=== PATIENT | female | born 1995 | race Hispanic/Latino ===

== ENCOUNTER 2017-12-09 08:32 | Emergency (ER) | payer SELFPAY ==
[2017-12-09] MEDS ORDERED: ACETAMINOPHEN EXTRA STRENGTH 500 MG TABLET ONE (08:39)
[2017-12-09 09:25] LABS: HCG,QUAL RESULT NEGATIVE (NEGATIVE)
[2017-12-09 09:26] LABS: APPEARANCE,URINE Cloudy (CLEAR); BILIRUBIN,URINE Negative (NEGATIVE); COLOR,URINE Yellow (YELLOW); GLUCOSE, URINE (UA) Negative (NEGATIVE); KETONES,URINE Trace mg/dL (NEGATIVE); LEUKOCYTE ESTERASE ,URINE Small (NEGATIVE); NITRATE,URINE Negative (NEGATIVE); OCCULT BLOOD,URINE Nonhemolyzed Trace (NEGATIVE); PH,URINE 6.5 (5.0-8.0); PROTEIN,URINE Trace (NEGATIVE)
[2017-12-09 09:37] LABS: BACTERIA,URINE Few /HPF (None Seen)
== END 2017-12-09 10:26 | disposition home or self-care (01) ==
LOC: EDH 08:32
DX: R50.9 Fever, unspecified (principal); R05 Cough; M79.1 Myalgia; R11.2 Nausea with vomiting, unspecified
CPT/HCPCS: 81001; 81025; 87804

== ENCOUNTER 2018-02-23 03:32 | Emergency (ER) | payer SELFPAY | END 2018-02-23 04:17 | disposition home or self-care (01) | LOC: EDH 03:32 | DX: R07.89 Other chest pain (principal); F41.1 Generalized anxiety disorder; Z72.0 Tobacco use; Z90.49 Acquired absence of other specified parts of digestive tract | CPT/HCPCS: 93005 ==

== ENCOUNTER 2018-02-24 20:07 | Emergency (ER) | payer SELFPAY | END 2018-02-24 20:47 | disposition home or self-care (01) | LOC: EDH 20:07 | DX: Z02.89 Encounter for other administrative examinations (principal); Z90.49 Acquired absence of other specified parts of digestive tract ==

== ENCOUNTER 2018-04-03 09:18 | Emergency (ER) | payer OTHER | END 2018-04-03 11:13 | disposition home or self-care (01) | LOC: EDH 09:18 | DX: S89.81XA Other specified injuries of right lower leg, initial encounter (principal); W18.39XA Other fall on same level, initial encounter; Y93.89 Activity, other specified; Y92.89 Other specified places as the place of occurrence of the external cause; Y99.8 Other external cause status | CPT/HCPCS: 29505; 73562 ==

== ENCOUNTER 2018-10-21 20:14 | Emergency (ER) | payer OTHER ==
[2018-10-21] MEDS ORDERED: ONDANSETRON ODT 4 MG TAB ONE (20:46)
[2018-10-21 21:53] LABS: APPEARANCE,URINE Clear (CLEAR); BILIRUBIN,URINE Negative (NEGATIVE); COLOR,URINE Yellow (YELLOW); GLUCOSE, URINE (UA) Negative (NEGATIVE); KETONES,URINE Negative (NEGATIVE); LEUKOCYTE ESTERASE ,URINE Moderate (NEGATIVE); NITRATE,URINE Negative (NEGATIVE); OCCULT BLOOD,URINE Nonhemolyzed Trace (NEGATIVE); PH,URINE 7.5 (5.0-8.0); PROTEIN,URINE Negative (NEGATIVE)
[2018-10-21 21:56] LABS: HCG,QUAL RESULT NEGATIVE (NEGATIVE)
[2018-10-21 22:06] LABS: BACTERIA,URINE Rare /HPF (None Seen); RBC,URINE None Seen /HPF (0-1)
[2018-10-21 22:37] LABS: BASOPHILS % (AUTO) 0.4 % (0.0-5.0); EOSINOPHILS % (AUTO) 0.5 % (0.0-8.0); HEMATOCRIT 40.2 % (36-48); LYMPHOCYTES % (AUTO) 26.1 % (21.0-51.0); MEAN CORPUSCULAR HEMOGLOBIN 25.3 pg (27.0-33.0); MEAN CORPUSCULAR HGB CONC 32.2 g/dL (32.0-36.0); MEAN CORPUSCULAR VOLUME 78.5 fL (79-99); RED BLOOD CELL COUNT(AUTO) 5.12 MIL/uL (4.00-5.50); RED CELL DISTRIBUTION WIDTH 16.3 % (11.0-15.5); WHITE BLOOD COUNT (AUTO) 8.6 K/uL (4.8-10.8)
[2018-10-21] MEDS ORDERED: ONDANSETRON HCL 4 MG/2 ML VIAL ONE (22:38)
[2018-10-21] MEDS ORDERED: SODIUM CHLORIDE 0.9% 1000ML 1,000 ML IV ONE (22:38)
[2018-10-21 22:46] LABS: CREATININE 0.5 mg/dL (0.5-1.5); POTASSIUM 5.1 mmol/L (3.5-5.1)
[2018-10-21 22:51] LABS: ALBUMIN 3.8 g/dL (3.5-5.0); BILIRUBIN,DIRECT 0.1 mg/dL (0.0-0.3); BILIRUBIN,TOTAL 0.8 mg/dL (0.2-1.0); TOTAL PROTEIN, SERUM 7.8 g/dL (6.0-8.3)
[2018-10-21 23:24] LABS: OCCULT BLOOD STOOL SINGLE ONLY NEGATIVE (NEGATIVE)
[2018-10-21 23:53] LABS: PLATELET COUNT (AUTO) 279 K/uL (130-400)
== END 2018-10-22 00:16 | disposition home or self-care (01) ==
LOC: EDH 20:14
DX: A09 Infectious gastroenteritis and colitis, unspecified (principal); Z90.49 Acquired absence of other specified parts of digestive tract
CPT/HCPCS: 36415; 80048; 80076; 81001; 81025; 82270; 83630; 83690; 85025; 87046; 87324; 96374; 99283; J2405; J7030

== ENCOUNTER 2019-01-12 00:07 | Emergency (ER) | payer OTHER ==
[2019-01-12] MEDS ORDERED: AMOXICILLIN/POTASSIUM CLAV 875-125 TABLET PO ONE (00:57)
[2019-01-12] MEDS ORDERED: ACETAMINOPHEN EXTRA STRENGTH 500 MG TABLET ONE (00:57)
[2019-01-12] MEDS ORDERED: HYOSCYAMINE SULFATE 0.125 MG TAB.SUBL SL ONE (00:58)
[2019-01-12] MEDS ORDERED: ONDANSETRON HCL 4 MG/2 ML VIAL ONE (00:58)
== END 2019-01-12 01:13 | disposition home or self-care (01) ==
LOC: EDH 00:07
DX: H66.91 Otitis media, unspecified, right ear (principal); Z90.49 Acquired absence of other specified parts of digestive tract
CPT/HCPCS: 99283; J2405

== ENCOUNTER 2019-04-17 13:29 | Emergency (ER) | payer OTHER ==
[2019-04-17 14:42] LABS: APPEARANCE,URINE Clear (CLEAR); BILIRUBIN,URINE Negative (NEGATIVE); COLOR,URINE Yellow (YELLOW); GLUCOSE, URINE (UA) Negative (NEGATIVE); KETONES,URINE Negative (NEGATIVE); LEUKOCYTE ESTERASE ,URINE Small (NEGATIVE); NITRATE,URINE Negative (NEGATIVE); OCCULT BLOOD,URINE Negative (NEGATIVE); PROTEIN,URINE Negative (NEGATIVE); UROBILINOGEN,URINE 0.2 mg/dL (0.2-1.0)
[2019-04-17 14:48] LABS: HCG,QUAL RESULT NEGATIVE (NEGATIVE)
[2019-04-17 15:04] LABS: BACTERIA,URINE Rare /HPF (None Seen); MUCUS,URINE Few LPF (None Seen); RBC,URINE None Seen /HPF (0-1); SQUAMOUS EPITHELIAL CELL,UR 30-50 /HPF (0-2); WBC,URINE 0-1 /HPF (0-1)
== END 2019-04-17 15:12 | disposition home or self-care (01) ==
LOC: EDH 13:29
DX: M54.5 Low back pain (principal)
CPT/HCPCS: 81001; 81025

== ENCOUNTER 2020-05-03 15:16 | Emergency (ER) | payer MEDICAID ==
[2020-05-03 15:39] LABS: APPEARANCE,URINE Turbid (CLEAR); BILIRUBIN,URINE Negative (NEGATIVE); COLOR,URINE Yellow (YELLOW); GLUCOSE, URINE (UA) Negative (NEGATIVE); KETONES,URINE Negative (NEGATIVE); LEUKOCYTE ESTERASE ,URINE Trace (NEGATIVE); NITRATE,URINE Negative (NEGATIVE); OCCULT BLOOD,URINE Negative (NEGATIVE); PH,URINE >=9.0 (5.0-8.0); PROTEIN,URINE POS 1+ mg/dL (NEGATIVE)
[2020-05-03 16:29] LABS: BASOPHILS % (AUTO) 0.3 % (0.0-5.0); EOSINOPHILS % (AUTO) 0.6 % (0.0-8.0); MEAN CORPUSCULAR HGB CONC 32.4 g/dL (32.0-36.0); MEAN CORPUSCULAR VOLUME 77.3 fL (79-99); MONOCYTES % (AUTO) 6.5 % (3.0-13.0); NEUTROPHILS % (AUTO) 70.3 % (40.0-77.0); PLATELET COUNT (AUTO) 233 K/uL (130-400); RED CELL DISTRIBUTION WIDTH 16.2 % (11.0-15.5); WHITE BLOOD COUNT (AUTO) 9.9 K/uL (4.8-10.8)
[2020-05-03 16:33] LABS: AMORPHOUS SEDIMENT,UR Moderate /LPF (None Seen); BACTERIA,URINE Few /HPF (None Seen); MUCUS,URINE Few LPF (None Seen); SQUAMOUS EPITHELIAL CELL,UR Moderate /HPF (0-2)
[2020-05-03 16:44] LABS: POTASSIUM 3.3 mmol/L (3.5-5.1)
[2020-05-03 16:48] LABS: ALBUMIN 3.1 g/dL (3.5-5.0); BILIRUBIN,TOTAL 0.3 mg/dL (0.2-1.0)
[2020-05-03 18:26] LABS: CREATININE 0.5 mg/dL (0.5-1.5)
[2020-05-03] MEDS ORDERED: POTASSIUM CHLORIDE 20 MEQ ERTAB PO ONE (18:41)
== END 2020-05-03 19:03 | disposition home or self-care (01) ==
LOC: EDH 15:16
DX: O21.9 Vomiting of pregnancy, unspecified (principal); O26.892 Other specified pregnancy related conditions, second trimester; R10.13 Epigastric pain; Z3A.16 16 weeks gestation of pregnancy; Z90.49 Acquired absence of other specified parts of digestive tract
CPT/HCPCS: 36415; 76700; 76805; 80053; 81001; 83690; 85025

== ENCOUNTER 2020-06-28 17:07 | Emergency (ER) | payer MEDICAID ==
[2020-06-28] MEDS ORDERED: ONDANSETRON HCL 4 MG/2 ML VIAL ONE (18:34)
[2020-06-28 18:48] LABS: BASOPHILS % (AUTO) 0.2 % (0.0-5.0); EOSINOPHILS % (AUTO) 0.5 % (0.0-8.0); HEMATOCRIT 33.9 % (36-48); MEAN CORPUSCULAR HEMOGLOBIN 25.5 pg (27.0-33.0); MEAN CORPUSCULAR HGB CONC 32.4 g/dL (32.0-36.0); MEAN CORPUSCULAR VOLUME 78.7 fL (79-99); MONOCYTES % (AUTO) 7.1 % (3.0-13.0); NEUTROPHILS % (AUTO) 72.6 % (40.0-77.0); PLATELET COUNT (AUTO) 283 K/uL (130-400); RED BLOOD CELL COUNT(AUTO) 4.31 MIL/uL (4.00-5.50); RED CELL DISTRIBUTION WIDTH 14.7 % (11.0-15.5); WHITE BLOOD COUNT (AUTO) 13.1 K/uL (4.8-10.8)
[2020-06-28 19:11] LABS: CREATININE 0.4 mg/dL (0.5-1.5); POTASSIUM 3.4 mmol/L (3.5-5.1)
[2020-06-28 19:17] LABS: BILIRUBIN,TOTAL 0.4 mg/dL (0.2-1.0); TOTAL PROTEIN, SERUM 7.6 g/dL (6.0-8.3)
== END 2020-06-28 19:58 | disposition home or self-care (01) ==
LOC: EDH 17:07
DX: O21.9 Vomiting of pregnancy, unspecified (principal); O26.892 Other specified pregnancy related conditions, second trimester; R06.2 Wheezing; Z3A.24 24 weeks gestation of pregnancy; Z90.49 Acquired absence of other specified parts of digestive tract
CPT/HCPCS: 36415; 80053; 85025; 96374; 99283; J2405

== ENCOUNTER 2020-08-15 08:59 | Observation (INO) | payer MEDICAID ==
[~2020-08-15] VITALS: Ht 157.5 cm; Wt 91.6 kg
[2020-08-15 10:12] LABS: APPEARANCE,URINE CLEAR (CLEAR); BILIRUBIN,URINE NEGATIVE (NEGATIVE); COLOR,URINE YELLOW (YELLOW); GLUCOSE, URINE (UA) NEGATIVE (NEGATIVE); KETONES,URINE 5 mg/dL (NEGATIVE); LEUKOCYTE ESTERASE ,URINE NEGATIVE (NEGATIVE); NITRATE,URINE NEGATIVE (NEGATIVE); OCCULT BLOOD,URINE TRACE-INTACT (NEGATIVE); PH,URINE 6.5 (5.0-8.0); PROTEIN,URINE 30 mg/dL (NEGATIVE)
[2020-08-15 10:18] LABS: BACTERIA,URINE Few /HPF (None Seen); RBC,URINE 0-1 /HPF (0-1); WBC,URINE 0-1 /HPF (0-1)
[2020-08-15 10:30] VITALS: BP 118/68
[2020-08-15] MEDS ORDERED: CEFTRIAXONE SODIUM 1 GM IM SCH (10:30)
[2020-08-15] MEDS ORDERED: WATER FOR INJECTION,STERILE 5 ML VIAL ONE (10:48)
[2020-08-15 13:03] VITALS: BP 115/51
== END 2020-08-15 13:03 | disposition home or self-care (01) ==
LOC: EDH 08:59 → LDH 09:00
PROVIDERS: ADMIT Internal Medicine; ATTEND Internal Medicine
DX: O23.43 Unspecified infection of urinary tract in pregnancy, third trimester (principal); R10.2 Pelvic and perineal pain; Z3A.30 30 weeks gestation of pregnancy
CPT/HCPCS: 81001; 87088; 96372; 99284; G0378 ×4; J0696

== ENCOUNTER 2020-09-02 13:35 | Observation (INO) | payer MEDICAID ==
[~2020-09-02] VITALS: Ht 167.6 cm; Wt 100.7 kg
[2020-09-02] MEDS ORDERED: LACTATED RINGERS 1000ML 1,000 ML IV SCH (15:00)
[2020-09-02 15:27] LABS: BASOPHILS % (AUTO) 0.2 % (0.0-5.0); EOSINOPHILS % (AUTO) 0.6 % (0.0-8.0); HEMATOCRIT 29.9 % (36-48); LYMPHOCYTES % (AUTO) 21.3 % (21.0-51.0); MEAN CORPUSCULAR HEMOGLOBIN 24.7 pg (27.0-33.0); MEAN CORPUSCULAR HGB CONC 32.1 g/dL (32.0-36.0); MEAN CORPUSCULAR VOLUME 76.9 fL (79-99); MONOCYTES % (AUTO) 7.8 % (3.0-13.0); NEUTROPHILS % (AUTO) 69.6 % (40.0-77.0); PLATELET COUNT (AUTO) 218 K/uL (130-400); RED BLOOD CELL COUNT(AUTO) 3.89 MIL/uL (4.00-5.50); RED CELL DISTRIBUTION WIDTH 14.6 % (11.0-15.5); WHITE BLOOD COUNT (AUTO) 10.7 K/uL (4.8-10.8)
[2020-09-02 15:38] LABS: CREATININE 0.6 mg/dL (0.5-1.5); POTASSIUM 4.2 mmol/L (3.5-5.1)
[2020-09-02 15:42] LABS: INR 0.88 (0.85-1.15); PARTIAL THROMBOPLASTIN TIME 25.3 SEC (26.3-35.5); PROTHROMBIN TIME 9.5 SEC (9.6-11.6)
[2020-09-02 15:43] LABS: ALBUMIN 2.1 g/dL (3.5-5.0); BILIRUBIN,TOTAL 0.7 mg/dL (0.2-1.0); TOTAL PROTEIN, SERUM 5.7 g/dL (6.0-8.3); URIC ACID 4.8 mg/dL (2.6-7.2)
[2020-09-02 16:04] LABS: APPEARANCE,URINE Cloudy (CLEAR); BILIRUBIN,URINE Small (NEGATIVE); COLOR,URINE Dark Yellow (YELLOW); GLUCOSE, URINE (UA) Negative (NEGATIVE); KETONES,URINE Trace mg/dL (NEGATIVE); LEUKOCYTE ESTERASE ,URINE Moderate (NEGATIVE); NITRATE,URINE Negative (NEGATIVE); OCCULT BLOOD,URINE Negative (NEGATIVE); PROTEIN,URINE POS 2+ mg/dL (NEGATIVE)
[2020-09-02 16:13] LABS: AMPHET/METH SCREEN,URINE NEGATIVE (NEGATIVE); BACTERIA,URINE Few /HPF (None Seen); BARBITURATE SCREEN, URINE NEGATIVE (NEGATIVE); BENZODIAZEPINES SCREEN,URINE NEGATIVE (NEGATIVE); CANNABINOID SCREEN,URINE POSITIVE (NEGATIVE); COCAINE SCREEN,URINE NEGATIVE (NEGATIVE); OPIATE SCREEN,URINE NEGATIVE (NEGATIVE); PHENCYCLIDINE SCREEN,URINE NEGATIVE (NEGATIVE)
[2020-09-02 16:15] LABS: RBC,URINE 0-1 /HPF (0-1)
[2020-09-04 08:13] LABS: HEPATITIS Bs ANTIGEN SCREEN P Negative (Negative)
== END 2020-09-02 20:30 | disposition home or self-care (01) ==
LOC: EDH 13:35 → LDH 13:36
PROVIDERS: ADMIT Internal Medicine; ATTEND Internal Medicine
DX: O26.893 Other specified pregnancy related conditions, third trimester (principal); R03.0 Elevated blood-pressure reading, without diagnosis of hypertension; O21.2 Late vomiting of pregnancy; O36.8130 Decreased fetal movements, third trimester, not applicable or unspecified; R60.0 Localized edema; R61 Generalized hyperhidrosis; Z90.49 Acquired absence of other specified parts of digestive tract; Z3A.34 34 weeks gestation of pregnancy
CPT/HCPCS: 36415; 76819; 80053; 80305; 81001; 84550; 85025; 85384; 85610; 85730; 86592; 86850; 86900; 86901; 87088; 87340 ×2; 96360; 96361; 99284; G0378 ×7; J7120

== ENCOUNTER 2022-02-07 23:35 | Emergency (ER) | payer MEDICAID ==
[~2022-02-07] VITALS: Ht 167.6 cm; Wt 90.7 kg
[2022-02-08 01:08] VITALS: BP 121/71
== END 2022-02-08 01:10 | disposition home or self-care (01) ==
LOC: EDH 23:35
DX: S00.83XA Contusion of other part of head, initial encounter (principal); Y08.89XA Assault by other specified means, initial encounter; Y93.89 Activity, other specified; Y92.89 Other specified places as the place of occurrence of the external cause; Y99.8 Other external cause status
CPT/HCPCS: 70450; 70486; 81025

== ENCOUNTER 2022-02-10 16:02 | Emergency (ER) | payer MEDICAID ==
[~2022-02-10] VITALS: Ht 167.6 cm; Wt 90.7 kg
[2022-02-10 16:06] VITALS: BP 113/77
[2022-02-10 16:43] LABS: APPEARANCE,URINE Cloudy (CLEAR); BILIRUBIN,URINE Negative (NEGATIVE); COLOR,URINE Yellow (YELLOW); GLUCOSE, URINE (UA) Negative (NEGATIVE); KETONES,URINE Negative (NEGATIVE); LEUKOCYTE ESTERASE ,URINE Large (NEGATIVE); NITRATE,URINE Negative (NEGATIVE); OCCULT BLOOD,URINE Nonhemolyzed Trace (NEGATIVE); PH,URINE 6.5 (5.0-8.0); PROTEIN,URINE Negative (NEGATIVE)
[2022-02-10 16:49] LABS: BACTERIA,URINE Few /HPF (None Seen); SQUAMOUS EPITHELIAL CELL,UR Few /HPF (0-2); WBC,URINE 26-50 /HPF (0-1)
[2022-02-10 16:51] LABS: HCG,QUAL RESULT NEGATIVE (NEGATIVE)
[2022-02-10] MEDS ORDERED: CEPH500B PO (17:15)
[2022-02-10] MEDS ORDERED: ACET-66 PO (17:15)
== END 2022-02-10 18:05 | disposition home or self-care (01) ==
LOC: EDH 16:02
DX: N39.0 Urinary tract infection, site not specified (principal); Z90.49 Acquired absence of other specified parts of digestive tract
CPT/HCPCS: 81001; 81025; 87077; 87088; 87186; 87486; 87797

== ENCOUNTER 2023-03-22 20:31 | Emergency (ER) | payer MEDICAID ==
[~2023-03-22] VITALS: Ht 167.6 cm; Wt 90.3 kg
[~2023-03-22 20:31] MED LIST: ACET-66 PO; CEPH500B PO
[2023-03-22 20:43] VITALS: BP 120/80
[2023-03-22] MEDS ORDERED: KETOROLAC 30MG VIAL (30MG/ML) IM ONE (21:30)
[2023-03-22] MEDS ORDERED: NAPR-1023 PO (21:40)
== END 2023-03-22 22:11 | disposition home or self-care (01) ==
LOC: EDH 20:31
DX: M25.522 Pain in left elbow (principal); Z79.1 Long term (current) use of non-steroidal anti-inflammatories (NSAID); Z79.899 Other long term (current) drug therapy; W18.39XA Other fall on same level, initial encounter; Y93.89 Activity, other specified; Y92.89 Other specified places as the place of occurrence of the external cause; Y99.8 Other external cause status
CPT/HCPCS: 99284; 81025; 73080; 73090; 73060; 96372; J1885

== ENCOUNTER 2023-05-29 14:32 | Emergency (ER) | payer MEDICAID ==
[~2023-05-29] VITALS: Ht 167.6 cm; Wt 90.7 kg
[~2023-05-29 14:32] MED LIST changes: +NAPR-1023 PO
[2023-05-29 14:52] LABS: APPEARANCE,URINE CLEAR (CLEAR); BILIRUBIN,URINE NEGATIVE (NEGATIVE); COLOR,URINE YELLOW (YELLOW); GLUCOSE, URINE (UA) NEGATIVE (NEGATIVE); KETONES,URINE NEGATIVE (NEGATIVE); LEUKOCYTE ESTERASE ,URINE NEGATIVE Leu/uL (NEGATIVE); NITRATE,URINE NEGATIVE (NEGATIVE); OCCULT BLOOD,URINE NEGATIVE (NEGATIVE); PH,URINE 8.5 (5.0-8.0); PROTEIN,URINE 30 mg/dL (NEGATIVE); UROBILINOGEN,URINE 0.2 mg/dL (0.2-1.0)
[2023-05-29 14:57] LABS: HCG,QUALITATIVE URINE POSITIVE (NEGATIVE)
[2023-05-29 14:58] LABS: BACTERIA,URINE RARE /HPF (None Seen); MUCUS,URINE FEW LPF (None Seen); SQUAMOUS EPITHELIAL CELL,UR FEW /HPF (0-2)
[2023-05-29 15:27] LABS: BASOPHILS % (AUTO) 0.3 % (0.0-5.0); EOSINOPHILS % (AUTO) 0.3 % (0.0-8.0); HEMATOCRIT 38.9 % (36-48); LYMPHOCYTES % (AUTO) 21.4 % (21.0-51.0); MEAN CORPUSCULAR HEMOGLOBIN 26.7 pg (27.0-33.0); MEAN CORPUSCULAR HGB CONC 32.6 g/dL (32.0-36.0); MEAN CORPUSCULAR VOLUME 81.9 fL (79-99); MONOCYTES % (AUTO) 6.2 % (3.0-13.0); NEUTROPHILS % (AUTO) 71.4 % (40.0-77.0); PLATELET COUNT (AUTO) 272 K/uL (130-400); RED BLOOD CELL COUNT(AUTO) 4.75 MIL/uL (4.00-5.50); RED CELL DISTRIBUTION WIDTH 15.3 % (11.0-15.5); WHITE BLOOD COUNT (AUTO) 10.2 K/uL (4.8-10.8)
[2023-05-29 15:35] LABS: CREATININE 0.5 mg/dL (0.5-1.5); POTASSIUM 4.2 mmol/L (3.5-5.1)
[2023-05-29 15:41] LABS: ALBUMIN 3.8 g/dL (3.5-5.0); TOTAL PROTEIN, SERUM 7.6 g/dL (6.0-8.3)
[2023-05-29 19:08] VITALS: BP 126/69
== END 2023-05-29 19:07 | disposition home or self-care (01) ==
LOC: EDH 14:32
DX: O20.9 Hemorrhage in early pregnancy, unspecified (principal); Z90.49 Acquired absence of other specified parts of digestive tract; Z3A.01 Less than 8 weeks gestation of pregnancy
CPT/HCPCS: 36415; 76801; 80053; 81001; 81025; 83690; 84702; 85025

== ENCOUNTER 2023-06-03 14:00 | Emergency (ER) | payer MEDICAID ==
[~2023-06-03] VITALS: Ht 167.6 cm; Wt 90.7 kg
[2023-06-03 15:15] LABS: BASOPHILS % (AUTO) 0.2 % (0.0-5.0); EOSINOPHILS % (AUTO) 0.2 % (0.0-8.0); HEMATOCRIT 39.6 % (36-48); LYMPHOCYTES % (AUTO) 21.6 % (21.0-51.0); MEAN CORPUSCULAR HEMOGLOBIN 26.7 pg (27.0-33.0); MEAN CORPUSCULAR HGB CONC 32.3 g/dL (32.0-36.0); MEAN CORPUSCULAR VOLUME 82.5 fL (79-99); MONOCYTES % (AUTO) 5.9 % (3.0-13.0); NEUTROPHILS % (AUTO) 71.7 % (40.0-77.0); PLATELET COUNT (AUTO) 235 K/uL (130-400); RED CELL DISTRIBUTION WIDTH 15.2 % (11.0-15.5)
[2023-06-03 15:28] LABS: APPEARANCE,URINE CLEAR (CLEAR); BILIRUBIN,URINE NEGATIVE (NEGATIVE); COLOR,URINE LIGHT-YELLOW (YELLOW); GLUCOSE, URINE (UA) NEGATIVE (NEGATIVE); KETONES,URINE NEGATIVE (NEGATIVE); LEUKOCYTE ESTERASE ,URINE NEGATIVE Leu/uL (NEGATIVE); NITRATE,URINE NEGATIVE (NEGATIVE); OCCULT BLOOD,URINE NEGATIVE (NEGATIVE); PH,URINE 6.5 (5.0-8.0); PROTEIN,URINE NEGATIVE (NEGATIVE); UROBILINOGEN,URINE 0.2 mg/dL (0.2-1.0)
[2023-06-03 15:35] LABS: MUCUS,URINE RARE LPF (None Seen); SQUAMOUS EPITHELIAL CELL,UR RARE /HPF (0-2)
[2023-06-03 15:44] VITALS: BP 137/62
[2023-06-03 15:48] LABS: ALBUMIN 3.8 g/dL (3.5-5.0); CREATININE 0.5 mg/dL (0.5-1.5); POTASSIUM 3.9 mmol/L (3.5-5.1); TOTAL PROTEIN, SERUM 7.7 g/dL (6.0-8.3)
== END 2023-06-03 17:10 | disposition home or self-care (01) ==
LOC: EDH 14:00
DX: O46.91 Antepartum hemorrhage, unspecified, first trimester (principal); Z3A.01 Less than 8 weeks gestation of pregnancy; Z90.89 Acquired absence of other organs; Z90.49 Acquired absence of other specified parts of digestive tract
CPT/HCPCS: 36415; 76801; 80053; 81001; 84702; 85025; 86900; 86901

== ENCOUNTER 2023-11-03 06:09 | Observation (INO) | payer MEDICAID ==
[~2023-11-03] VITALS: Ht 167.6 cm; Wt 90.7 kg
[2023-11-03 06:11] VITALS: BP 130/74; PULSE 97; RESP 18
[2023-11-03 06:57] LABS: BILIRUBIN,URINE NEGATIVE (NEGATIVE); COLOR,URINE LIGHT-YELLOW (YELLOW); GLUCOSE, URINE (UA) NEGATIVE (NEGATIVE); KETONES,URINE NEGATIVE (NEGATIVE); LEUKOCYTE ESTERASE ,URINE NEGATIVE Leu/uL (NEGATIVE); NITRATE,URINE NEGATIVE (NEGATIVE); OCCULT BLOOD,URINE NEGATIVE (NEGATIVE); PROTEIN,URINE 20 mg/dL (NEGATIVE); UROBILINOGEN,URINE 0.2 mg/dL (0.2-1.0)
[2023-11-03 07:02] LABS: ADD UA MICROSCOPIC YES; APPEARANCE,URINE HAZY (CLEAR)
[2023-11-03 07:03] LABS: BACTERIA,URINE RARE /HPF (None Seen); MUCUS,URINE RARE LPF (None Seen); RBC,URINE 0-1 /HPF (0-1); SQUAMOUS EPITHELIAL CELL,UR MOD /HPF (0-2); WBC,URINE 0-1 /HPF (0-1)
== END 2023-11-03 08:25 | disposition home or self-care (01) ==
LOC: EDH 06:09 → LDH 06:27
PROVIDERS: ADMIT Obstetrics & Gynecology; ATTEND Obstetrics & Gynecology
DX: O36.8130 Decreased fetal movements, third trimester, not applicable or unspecified (principal); O21.2 Late vomiting of pregnancy; O26.893 Other specified pregnancy related conditions, third trimester; N89.8 Other specified noninflammatory disorders of vagina; R10.30 Lower abdominal pain, unspecified; Z90.89 Acquired absence of other organs; Z3A.29 29 weeks gestation of pregnancy
CPT/HCPCS: 81001; 76819; G0378 ×2; G0379

== ENCOUNTER 2025-09-01 22:48 | Emergency (ER) | payer SELFPAY ==
[~2025-09-01] VITALS: Ht 167.6 cm; Wt 84.9 kg
[~2025-09-01 22:48] MED LIST changes: -NAPR-1023 PO; +NAPR-1194 PO
[2025-09-01 23:19] LABS: IMMATURE GRANULOCYTE ABSOLUTE 0.02 K/uL (0-1); NUCLEATED RED BLOOD CELLS 0.0 % (0.0-0.19); PLATELET COUNT (AUTO) 241 K/uL (130-400); RED BLOOD CELL COUNT(AUTO) 4.56 MIL/uL (4.00-5.50); RED CELL DISTRIBUTION WIDTH 15.9 % (11.0-15.5); WHITE BLOOD COUNT (AUTO) 8.4 K/uL (4.8-10.8)
[2025-09-01 23:28] LABS: CREATININE 0.6 mg/dL (0.5-1.0); GLOMERULAR FILTR. RATE CALC 123.0 mL/min (>90); GLUCOSE,RANDOM 105.0 mg/dL (70-105); SODIUM SERUM 137.0 mmol/L (136-145); UREA NITROGEN, BLOOD 5.0 mg/dL (7-18)
[2025-09-01 23:29] LABS: APPEARANCE,URINE CLOUDY (CLEAR); GLUCOSE, URINE (UA) NEGATIVE (NEGATIVE); LEUKOCYTE ESTERASE ,URINE NEGATIVE Leu/uL (NEGATIVE); NITRATE,URINE NEGATIVE (NEGATIVE); OCCULT BLOOD,URINE +- (TRACE) (NEGATIVE)
--- NOTE | 2025-09-01 23:30 | ERN ---
ED Note History of Present Illness Stated Complaint: NAUSEA/VOMITING, GBW Chief Complaint: Nausea,Vomiting,Diarrhea Time Seen by MD: 22:50 Time Seen by Midlevel: 22:50 Dictation: The Patient is a 30-year-old female with a history of appendectomy, ranjit cystectomy who presents to the emergency department with complaints of epigastric abdominal pain associated with nausea nonbloody vomiting. Patient reports nonbloody diarrhea. Reports pain radiates to her right upper abdomen. Denies any fevers. Allergies: Coded Allergies: No Known Allergies (Unverified Allergy, Unknown, 04/17/19) No Known Drug Allergies (Unverified Allergy, Unknown, 05/04/20) Home Meds Active Scripts Naproxen (Naproxen) 500 Mg Tablet, 500 MG PO BID for PAIN for 10 Days, #20 TAB Prov:TIANNA NUNN DNP 03/22/23 Acetaminophen (Tylenol) 500 Mg Tab, 500 MG PO Q6HPRN for 5 Days, #30 TAB Prov:JEFFERSON VINCENT MD 02/10/22 Cephalexin Monohydrate (Keflex) 500 Mg Cap, 500 MG PO TID for 7 Days, #21 CAP Prov:JEFFERSON VINCENT MD 02/10/22 Past Medical History Past Medical History: No Pertinent History Surgical History: Appendectomy, Cholecystectomy Family History: Negative Social History: Negative, Lives with family, Other : 3 Para: 1 Aborts: 1 RN Note Reviewed/Agreed w/PFSH: Yes Review of System Dictation Constitutional: Negative for fever,chills, and weight loss Eyes: Negative for injury, pain,redness, and discharge ENT: Negative for injury,pain or swelling Cardiovascular: Negative for chest pain, palpitations, and edema Respiratory: Negative for shortness of breath, cough, and wheezing, Abdomen/GI: Negative for constipation positive for abdominal pain, nausea, vomiting, diarrhea Back: Negative for injury and pain : Negative for injury, bleeding and discharge MS/Extremity: Negative for injury and deformity Skin: Negative for rash, and discoloration Neuro: Negative for headache, weakness, numbness, tingling, and seizure Psych: Negative for suicide ideation, homicidal ideation, and hallucinations Initial Vital Sign VS Vital Signs Date Time Temp Pulse Resp B/P (MAP) Pulse Ox O2 Delivery O2 Flow Rate FiO2 09/01/25 22:50 99.0 103 18 125/74 99 Room Air 0 Physical Exam Dictation Vital Signs reviewed General Appearance: Alert, oriented x 3, no acute distress, well developed, nourished. Head and Face: non-traumatic. Eyes: PERRL, pink conjunctivas, eyelid no trauma, anterior chamber with arcus senilis. Ears: Pinnas intact and no signs of trauma or erythema ear canals clear and no discharge TM no erythema Nose: No discharge, no bleeding. Oropharynx: Mouth normal, tongue pink. pharynx clear,no erythema, tonsils no exudates, no abscesses noted, mucous membrane moist Neck: Supple, non-tender, no thyromegaly, no masses, no JVD, no bruits Breast:Deferred Chest:No tenderness, no crepitus, no paradoxical movement, no retractions Lungs:Clear, well-ventilated, symmetric, no rales, no wheezing, no rhonchi, no stridor, good breath sounds bilaterally Heart: Regular rate, regular rhythm, no murmur, no gallops Vascular: no peripheral edema, Abdomen: Soft, positive bowel sounds, nondistended, no guarding, nontender, no rebound, no masses no hepatomegaly, no splenomegaly, no Merida's sign, no hernias. Rectal: Deferred Genital: Deferred Neurological: Normal speech, motor function intact, sensory function intact Musculoskeletal: Neck nontender, full range of motion, back nontender, full range of motion, Extremities: nontender, full range of motion Skin: Color pink, dry, no turgor, no rash, no lacerations, no abrasions, no contusions. Lymphatic: Deferred Results (Laboratory/Radiology) Laboratory/Radiology Laboratory Tests Test 09/01/25 23:11 09/01/25 23:20 White Blood Count 8.4 K/uL (4.8-10.8) Red Blood Count 4.56 MIL/uL (4.00-5.50) Hemoglobin 12.3 g/dL (12.0-16.0) Hematocrit 36.7 % (36-48) Mean Corpuscular Volume 80.5 fL (79-99) Mean Corpuscular Hemoglobin 27.0 pg (27.0-33.0) Mean Corpuscular Hemoglobin Concent 33.5 g/dL (32.0-36.0) Red Cell Distribution Width 15.9 % (11.0-15.5) H Platelet Count 241 K/uL (130-400) Mean Platelet Volume 11.5 fL (7.5-10.5) H Immature Granulocyte % (Auto) 0.2 % (0-1) Neutrophils (%) (Auto) 58.5 % (40.0-77.0) Lymphocytes (%) (Auto) 33.5 % (21.0-51.0) Monocytes (%) (Auto) 6.4 % (3.0-13.0) Eosinophils (%) (Auto) 1.0 % (0.0-8.0) Basophils (%) (Auto) 0.4 % (0.0-5.0) Neutrophils # (Auto) 4.9 K/uL (1.8-7.7) Lymphocytes # (Auto) 2.8 K/uL (1.0-4.8) Monocytes # (Auto) 0.5 K/uL (0.1-1.0) Eosinophils # (Auto) 0.08 K/uL (0.00-0.70) Basophils # (Auto) 0.03 K/uL (0.00-0.20) Absolute Immature Granulocyte (auto 0.02 K/uL (0-1) Nucleated Red Blood Cells 0.0 % (0.0-0.19) Sodium Level 137 mmol/L (136-145) Potassium Level 3.4 mmol/L (3.5-5.1) L Chloride Level 101 mmol/L (101-111) Carbon Dioxide Level 27 mmol/L (21-32) Blood Urea Nitrogen 5 mg/dL (7-18) L Creatinine 0.6 mg/dL (0.5-1.0) Glomerular Filtration Rate Calc 123 mL/min (>90) Random Glucose 105 mg/dL (70-105) Total Calcium 8.8 mg/dL (8.5-10.1) Total Bilirubin 1.5 mg/dL (0.2-1.0) H Direct Bilirubin 0.3 mg/dL (0.0-0.3) Aspartate Amino Transf (AST/SGOT) 13 U/L (10-37) Alanine Aminotransferase (ALT/SGPT) 14 U/L (12-78) Alkaline Phosphatase 69 U/L (50-136) Total Protein 7.5 g/dL (6.0-8.3) Albumin 3.9 g/dL (3.5-5.0) Lipase 20 U/L (16-77) Human Chorionic Gonadotropin, Quant 67934 mIU/mL (0-5) H Serum Test, Qualitative POSITIVE (NEGATIVE) H Urine Color YELLOW (YELLOW) Urine Appearance CLOUDY (CLEAR) H Urine pH 6.5 (5.0-8.0) Urine Specific [place] 1.032 (1.001-1.031) Urine Protein 30 mg/dL (NEGATIVE) H Urine Glucose (UA) NEGATIVE mg/dL (NEGATIVE) Urine Ketones 40 mg/dL (NEGATIVE) H Urine Occult Blood +- (TRACE) (NEGATIVE) H Urine Nitrate NEGATIVE (NEGATIVE) Urine Bilirubin NEGATIVE mg/dL (NEGATIVE) Urine Urobilinogen 2.0 mg/dL (0.2-1.0) H Urine Leukocyte Esterase NEGATIVE Dorie/uL Urine RBC 11-25 /HPF (0-1) H Urine WBC 2-5 /HPF (0-1) H Urine Squamous Epithelial Cells MANY /HPF (0-2) Urine Bacteria None /HPF (None Seen) Urine Opiates Screen NEGATIVE (NEGATIVE) Urine Barbiturates Screen NEGATIVE (NEGATIVE) Urine Phencyclidine Screen NEGATIVE (NEGATIVE) Urine Amphetamines Screen NEGATIVE (NEGATIVE) Urine Benzodiazepines Screen POSITIVE (NEGATIVE) H Urine Cocaine Screen NEGATIVE (NEGATIVE) Urine Marijuana (THC) Screen POSITIVE (NEGATIVE) H REASON: abd pain ORDERING PHYSICIAN: AVELINA WISEMAN MANAGER PHILOSOPHY PROCEDURE: OB <14 - US OB <14 WEEKS EXAM: US Obstetrical, Complete <14 weeks. CLINICAL HISTORY: Abdominal pain TECHNIQUE: Transabdominal imaging of the maternal pelvis and <14 week gestation with image documentation. COMPARISON: None provided. FINDINGS: GESTATION: Estimated gestational age: 6 weeks 1 day by ultrasound. 1.0 cm intrauterine saclike structure is evident, possibly a gestational sac (GS). Yolk sac not seen at this time. UTERUS: 8.5 ??? 5.6 ??? 6.2 cm. No myometrial mass. CERVIX: Closed. Unremarkable. OVARIES: Right ovary: 2.7 ??? 1.6 ??? 2.7 cm with normal flow. Left ovary: 2.9 ??? 1.7 ??? 2.2 cm with normal flow. Prominent follicle measuring 1.3 ??? 1.0 cm. FREE FLUID: None seen. IMPRESSION: Intrauterine gestational sac-like structure without pole or yolk sac at present. In conjunction with quantitative beta-hCG, findings may reflect a normal early , incomplete miscarriage, or an ectopic that is not seen. Recommend serial quantitative beta-hCG and short interval follow-up. /[place] Labs Reviewed?: Yes ED Course ED Course Orders Procedure Category Date Status Time Cbc With Differential LAB 09/01/25 Complete 22:56 Basic Metabolic Panel LAB 09/01/25 Complete 22:56 Hepatic Function Panel LAB 09/01/25 Complete 22:56 Lipase LAB 09/01/25 Complete 22:56 Testing, LAB 09/01/25 Complete Serum Hcg 22:56 Urinalysis Profile LAB 09/01/25 Complete 22:56 Drug Screen Urine LAB 09/01/25 Complete 23:11 Ondansetron 4mg Inj PHA 09/01/25 Complete (Zofran 4mg Inj) 23:30 Pantoprazole 40mg Inj PHA 09/01/25 Complete (Protonix 40mg Inj 23:30 0.9%Nacl 1000ml (Ns PHA 09/01/25 Complete 1000ml) 23:30 Hcg,Quantitative LAB 09/01/25 Complete 23:40 Us Ob <14 Weeks US 09/01/25 Resulted 23:40 Current Medications Medications (Trade) Dose Ordered Sig/Natalie Route PRN Reason Start Time Stop Time Status Last Admin Dose Admin Ondansetron HCl (zoFRAN 4MG INJ) 4 mg ONCE ONCE IVP 09/01/25 23:30 09/01/25 23:42 DC 09/01/25 23:48 Pantoprazole Sodium (PROTonix 40MG INJ) 40 mg ONCE ONCE IVP 09/01/25 23:30 09/01/25 23:42 DC 09/01/25 23:47 Sodium Chloride 1,000 ml @ 0 mls/hr ONCE ONCE IV 09/01/25 23:30 09/01/25 23:42 DC 09/01/25 23:48 Vital Signs Date Time Temp Pulse Resp B/P (MAP) Pulse Ox O2 Delivery O2 Flow Rate FiO2 09/01/25 22:50 99.0 103 18 125/74 99 Room Air 0 Medical Decision Making MDM The Patient is a 30-year-old female with a history of appendectomy, cholecystectomy who presents to the emergency department with complaints of epigastric abdominal pain associated with nausea nonbloody vomiting. Patient reports nonbloody diarrhea. Reports pain radiates to her right upper abdomen. Denies any fevers. CBC showed no leukocytosis, no anemia, chemistry showed mild hypokalemia, normal renal function, negative [place]ase, [place] [address]. Urinalysis negative for leukocyte esterase or nitrites. Patient reports her periods are irregular and reports her last one was in June. Ultrasound revealed it intrauterine gestational sac like structure without pole or yolk sac seen at this time. Could represent early . Patient otherwise with no lower abdominal pain, no vaginal bleeding or discharge. Patient is reports her OBGYN is in [place] and she will follow up with him. Patient instructed that she will need follow up hCG levels an ultrasound. Patient also instructed to return if she develops severe abdominal pain, vaginal bleeding. Patient otherwise in no acute distress, nontoxic appearance we will be discharged to follow up PCP. Differential diagnosis: Gastritis, gastroenteritis, dehydration, electrolyte imbalance Need for hospitalization: Patient does not meet criteria for hospitalization. There are no social concerns with this patient. DX & DISP Disposition: Discharge Departure Impression: Primary Impression: Positive test Additional Impressions: Nausea and vomiting, Abdominal pain Condition: Stable Additional Instructions: Your labs were unremarkable. Your test was positive. Please follow up with your OBGYN as soon as possible. You are again seen need repeat ultrasound and repeat the HCG levels in your blood. If you develop severe abdominal pain, vaginal bleeding or anything worsens please return to ER. FOLLOW-UP WITH PRIMARY CARE PROVIDER IN 1 TO 2 DAYS. TAKE MEDICATIONS DIRECTED HERE IN THE EMERGENCY ROOM. OKAY TO CONTINUE HOME MEDICATIONS UNLESS OTHERWISE DISCUSSED DURING YOUR VISIT IN THE EMERGENCY ROOM TODAY. RETURN TO YOUR NEAREST EMERGENCY ROOM IF SYMPTOMS WORSEN OR IF THERE IS NO IMPROVEMENT. CALL 911 IF YOU NEED IMMEDIATE ASSISTANCE. TAKE TYLENOL [id number] NEEDED AND IF NO CONTRAINDICATIONS ARE PRESENT. INCREASE ORAL HYDRATION. A WOUND CULTURE OR URINE CULTURE WAS ORDERED HERE IN THE EMERGENCY ROOM DEPARTMENT PLEASE FOLLOW-UP WITH PRIMARY CARE PROVIDER AND ADVISE THEM TO GET REPEAT PORTS FROM OUR FACILITY. IF YOU HAD ANY JAZZMINE WRAP/SPLINTS THAT WERE APPLIED HERE, PLEASE DO NOT REMOVE THEM UNTIL YOU SEE YOUR PRIMARY CARE OR SPECIALTY. Referrals: SELF,REFERRAL (PCP) Time of Disposition: 01:32 I have reviewed the case, and I agree with, Diagnosis and Plan AVELINA WISEMAN Sep 01, 2025 23:30
[2025-09-01 23:32] LABS: ADD UA MICROSCOPIC YES
[2025-09-01 23:32] LABS: ASPARTATE AMINOTRANSFERASE 13.0 U/L (10-37); TOTAL PROTEIN, SERUM 7.5 g/dL (6.0-8.3)
[2025-09-01 23:34] LABS: SQUAMOUS EPITHELIAL CELL,UR MANY /HPF (0-2)
[2025-09-01 23:36] LABS: AMPHET/METH SCREEN,URINE NEGATIVE (NEGATIVE); BARBITURATE SCREEN, URINE NEGATIVE (NEGATIVE); CANNABINOID SCREEN,URINE POSITIVE (NEGATIVE); COCAINE SCREEN,URINE NEGATIVE (NEGATIVE)
[2025-09-01] MEDS: 0.9%NACL 1000ML 1,000 ML IV ONE (23:48)
--- NOTE | 2025-09-02 01:21 | HMCIMG ---
EXAM: US Obstetrical, Complete <14 weeks. CLINICAL HISTORY: Abdominal pain TECHNIQUE: Transabdominal imaging of the maternal pelvis and <14 week gestation with image documentation. COMPARISON: None provided. FINDINGS: GESTATION: Estimated gestational age: 6 weeks 1 day by ultrasound. 1.0 cm intrauterine saclike structure is evident, possibly a gestational sac (GS). Yolk sac not seen at this time. UTERUS: 8.5 ??? 5.6 ??? 6.2 cm. No myometrial mass. CERVIX: Closed. Unremarkable. OVARIES: Right ovary: 2.7 ??? 1.6 ??? 2.7 cm with normal flow. Left ovary: 2.9 ??? 1.7 ??? 2.2 cm with normal flow. Prominent follicle measuring 1.3 ??? 1.0 cm. FREE FLUID: None seen. IMPRESSION: Intrauterine gestational sac-like structure without pole or yolk sac at present. In conjunction with quantitative beta-hCG, findings may reflect a normal early , incomplete miscarriage, or an ectopic that is not seen. Recommend serial quantitative beta-hCG and short interval follow-up. /[place]
[2025-09-02 01:49] VITALS: BP 136/80; PULSE 90; RESP 18; TEMP 98.6; O2SAT 100
== END 2025-09-02 01:50 | disposition home or self-care (01) ==
LOC: EDH 22:49
DX: O21.9 Vomiting of pregnancy, unspecified (principal); O26.891 Other specified pregnancy related conditions, first trimester; R10.13 Epigastric pain; Z32.01 Encounter for pregnancy test, result positive; Z3A.01 Less than 8 weeks gestation of pregnancy; Z90.49 Acquired absence of other specified parts of digestive tract
CPT/HCPCS: 99285; 96374; 76801; 96361; 96375; 80076; 80048; 80305; 84703; 84702; 83690; 85025; 81001; 36415; J7030; J2405; J2470